=== PATIENT | female | born 1985 | race Caucasian/White ===

== ENCOUNTER 2019-10-30 15:03 | Emergency (ER) | payer OTHER ==
--- NOTE | 2019-10-30 16:11 | CR ---
Chest: Frontal view of the chest was obtained. Comparison: No prior chest imaging. Heart size and mediastinum are normal. Lungs show no acute parenchymal change. Bony structures are unremarkable. Impression: 1. Nothing acute is appreciated on frontal chest x-ray. Diagnostic code #1 This report was dictated in [place] Standard Time
[2019-10-30 16:40] LABS: BLOOD UREA NITROGEN,BUN 14 mg/dL (7.0-18.0); CARBON DIOXIDE,CO2 25.4 mmol/L (21.0-32.0); CHLORIDE,CL 104 mmol/L (98-107); GLUCOSE RANDOM 94 mg/dL (74-106); POTASSIUM,K 3.9 mmol/L (3.5-5.1); SODIUM,NA 138 mmol/L (136-145)
--- NOTE | 2019-10-30 17:10 | EDM.PDOC ---
ED HPI GENERAL MEDICAL PROBLEM - General Chief Complaint: Chest Pain Stated Complaint: CHEST PAIN Time Seen by Provider: 10/30/19 15:09 - History of Present Illness INITIAL COMMENTS - FREE TEXT/NARRATIVE: Epigastric pain radiating to midsternum x1 day non-positional history of hypertension,, denies any shortness of breath syncope or dizziness denies any fever chills denies any nausea vomiting diarrhea patient denies any other complaint. No history of cardiac complaints. Denies any cardiac history recently put on antihypertensive medication on trial of third antihypertensive medication because of side effects to previous medications. Currently in no distress at this time she is normotensive on arrival Onset: Today - Related Data Allergies Allergy/AdvReac Type Severity Reaction Status Date / Time No Known Allergies Allergy Verified 10/30/19 15:08 Home Meds: Home Meds Lansoprazole [Prevacid] 30 mg PO DAILY PRN #30 capsule. 10/30/19 [Rx] Omeprazole 20 mg PO BEDTIME 10/30/19 [History] buPROPion [Wellbutrin] 450 mg PO ASDIRECTED 10/30/19 [History] Past Medical History - Past Health History Medical/Surgical History: Denies Medical/Surgical History Cardiovascular History: Reports: None, Angina - Infectious Disease History Infectious Disease History: Reports: None Social & Family History - Family History Family Medical History: Noncontributory - Tobacco Use Smoking Status *Q: Never Smoker - Recreational Drug Use Recreational Drug Use: No ED ROS GENERAL - Review of Systems Review Of Systems: See Below Constitutional: Reports: No Symptoms HEENT: Reports: No Symptoms Respiratory: Reports: No Symptoms Cardiovascular: Reports: Chest Pain GI/Abdominal: Reports: Abdominal Pain, Decreased Appetite Musculoskeletal: Reports: No Symptoms Skin: Reports: No Symptoms Neurological: Reports: No Symptoms Psychiatric: Reports: No Symptoms Immunologic: Reports: No Symptoms ED EXAM, GENERAL - Physical Exam Exam: See Below Exam Limited By: No Limitations General Appearance: Alert, No Apparent Distress Ears: Normal External Exam, Normal Canal, Hearing Grossly Normal, Normal TMs Ear Exam: Bilateral Ear: Auricle Normal, Canal Normal, TM normal Nose: Normal Inspection, Normal Mucosa, No Blood Head: Atraumatic, Normocephalic Neck: Normal Inspection, Supple, Non-Tender, Full Range of Motion Respiratory/Chest: No Respiratory Distress, Lungs Clear, Normal Breath Sounds, No Accessory Muscle Use, Chest Non-Tender Cardiovascular: Normal Peripheral Pulses, Regular Rate, Rhythm, No Edema, No Gallop, No JVD, No Murmur, No Rub GI/Abdominal: Normal Bowel Sounds, Soft, Other (Epigastric tenderness with negative Sprgaue's) Back Exam: Normal Inspection Extremities: Normal Inspection, Normal Range of Motion, Non-Tender, Normal Capillary Refill, No Pedal Edema Lymphatic: No Adenopathy EKG INTERPRETATION Rhythm: NSR Rate (Beats/Min): 80 [place]: Normal P-Wave: Present QRS: Normal ST-T: Normal Course - Vital Signs Last Recorded V/S: Last Vital Signs Temp 96.3 F 10/30/19 15:13 Pulse 118 H 10/30/19 15:13 Resp 16 10/30/19 15:13 BP 138/89 10/30/19 15:13 Pulse Ox 96 10/30/19 15:13 - Orders/Labs/Meds Orders: Active Orders 24 hr Category Date Time Status EKG Documentation Completion [RC] STAT Care 10/30/19 15:23 Active Labs: Laboratory Tests 10/30/19 10/30/19 Range/Units 15:40 15:40 WBC 7.28 (4.0-11.0) K/uL RBC 5.25 (4.30-5.90) M/uL Hgb 13.5 (12.0-16.0) g/dL Hct 42.5 (36.0-46.0) % MCV 81.0 (80.0-98.0) fL MCH 25.7 L (27.0-32.0) pg MCHC 31.8 (31.0-37.0) g/dL RDW Std Deviation 48.1 (28.0-62.0) fl RDW Coeff of Karen 16 H (11.0-15.0) % Plt Count 347 (150-400) K/uL MPV 9.10 (7.40-12.00) fL Neut % (Auto) 56.7 (48.0-80.0) % Lymph % (Auto) 34.6 (16.0-40.0) % Donley % (Auto) 6.0 (0.0-15.0) % Eos % (Auto) 1.9 (0.0-7.0) % Baso % (Auto) 0.8 (0.0-1.5) % Neut # (Auto) 4.1 (1.4-5.7) K/uL Lymph # (Auto) 2.5 H (0.6-2.4) K/uL Donley # (Auto) 0.4 (0.0-0.8) K/uL Eos # (Auto) 0.1 (0.0-0.7) K/uL Baso # (Auto) 0.1 (0.0-0.1) K/uL Nucleated RBC % 0.0 /100WBC Nucleated RBCs # 0 K/uL Sodium 138 (136-145) mmol/L Potassium 3.9 (3.5-5.1) mmol/L Chloride 104 (98-107) mmol/L Carbon Dioxide 25.4 (21.0-32.0) mmol/L BUN 14 (7.0-18.0) mg/dL Creatinine 0.9 (0.6-1.0) mg/dL Est Cr Clr Drug Dosing 107.02 mL/min Estimated GFR (MDRD) > 60.0 ml/min Glucose 94 (74-106) mg/dL Calcium 9.4 (8.5-10.1) mg/dL Total Bilirubin 0.2 (0.2-1.0) mg/dL AST 41 H (15-37) IU/L ALT 64 H (14-63) IU/L Alkaline Phosphatase 70 (46-116) U/L Troponin I < 0.050 (0.000-0.056) ng/mL Total Protein 8.1 (6.4-8.2) g/dL Albumin 3.6 (3.4-5.0) g/dL Globulin 4.5 H (2.6-4.0) g/dL Albumin/Globulin Ratio 0.8 L (0.9-1.6) Departure - Departure Time of Disposition: 17:12 Disposition: Home, Self-Care 01 Condition: Good Clinical Impression: Atypical chest pain Instructions: Nonspecific Chest Pain, [id number] Sepsis Event Note - Evaluation Sepsis Screening Result: No Definite Risk - Focused Exam Vital Signs: Vital Signs Temp Pulse Resp BP Pulse Ox 10/30/19 15:13 96.3 F 118 H 16 138/89 96 Date Exam was Performed: 10/30/19 Time Exam was Performed: 17:05 - My Orders Last 24 Hours: My Active Orders 10/30/19 15:23 EKG Documentation Completion [RC] STAT - Assessment/Plan Last 24 Hours: My Active Orders 10/30/19 15:23 EKG Documentation Completion [RC] STAT
== END 2019-10-30 17:25 | disposition home or self-care (01) ==
LOC: MW.ED 15:03
DX: R07.89 Other chest pain (principal); I10 Essential (primary) hypertension; Z79.899 Other long term (current) drug therapy
CPT/HCPCS: 36415; 71045; 71045-26; 80053; 84484; 85025; 93005; 99284; 99285-25

== ENCOUNTER 2021-01-23 17:53 | Emergency (ER) | payer OTHER ==
--- NOTE | 2021-01-23 18:16 | EDM.PDOC ---
ED HPI GENERAL MEDICAL PROBLEM - General Chief Complaint: Upper Extremity Injury/Pain Stated Complaint: FALL, RT WRIST INJURY Time Seen by Provider: 01/23/21 17:54 Source of Information: Reports: Patient History Limitations: Reports: No Limitations - History of Present Illness INITIAL COMMENTS - FREE TEXT/NARRATIVE: HISTORY AND PHYSICAL: History of present illness: The patient is a 35-year-old female presents to the emergency room with complaints of right thenar area after tripping on the sidewalk, falling to her knees and catching herself with her right hand. She denies numbness or tingling. She denies any other injury and did not hit her head. She denies any previous injury to the right hand. She has not teated the area with ice. She reports that she took Tylenol a few hours before the fall. Patient denies any fever, chills, headache, change in vision, syncope or near syncope. Denies any chest pain, back pain, shortness of breath or cough. Denies any abdominal pain, nausea, vomiting, diarrhea, constipation or dysuria. Has not noted any blood in urine or stool. Patient has been eating and drinking appropriately. Review of systems: As per history of present illness and below otherwise all systems reviewed and negative. Past medical history: As per history of present illness and as reviewed below otherwise noncontributory. Surgical history: As per history of present illness and as reviewed below otherwise noncontributory. Social history: See social history for further information Family history: As per history of present illness and as reviewed below otherwise noncontributory. Physical exam: General: Well developed and well nourished. Alert and orientated x 3. Nontoxic in appearance and in no acute distress. Vital signs are stable and have been reviewed by me. Nursing notes were reviewed. HEENT: Atraumatic, normocephalic, pupils equal and reactive bilaterally, negative for conjunctival pallor or scleral icterus, mucous membranes moist, TMs normal bilaterally, throat clear, neck supple, nontender, trachea midline. No drooling or trismus noted. No meningeal signs. No hot potato voice noted. Lungs: Clear to auscultation bilaterally. No wheezes, rales, or rhonchi. Chest nontender. Normal work of breathing, no accessory muscles used. Heart: S1S2, regular rate and rhythm without overt murmur, gallops, or rubs. No JVD. No peripheral edema Abdomen: Soft, nondistended, nontender. Normoactive bowel sounds. Negative for masses or costovertebral tenderness. Skin: Superficial abrasion to thenar area of right hand. Fingers are cool to touch. Sensation is normal. Superficial abrasions noted to bilateral knees. No active bleeding noted. No lesions or rashes noted. Hematologic: No petechiae or purpra. Mucosa appropriate color and normal nail bed color and refill. Extremities: Moves all extremities per self without difficulty or deficits, negative for cords or calf pain. Neurovascular unremarkable. Neuro: Awake, alert, oriented. Cranial nerves II through XII unremarkable. Cerebellum unremarkable. Motor and sensory unremarkable throughout. Exam nonfocal. Psychiatric: Mood and affect are appropriate. Normal thought process. Answering questions appropriately. Notes: *This patient was seen and evaluated during the 2019 SARS-CoV-2 novel coronavirus pandemic period. Community viral transmission is ongoing at time of this encounter and the emergency department is operating under pandemic response procedures. After discussion and exam the patient is agreeable to imaging. She was offered pain relief and refused. Right hand x-ray impression:No acute fracture. Patient to be discharged home. I have talked with the patient about today's findings, in addition to providing specific details for plan of care. Reassessment at the time of disposition demonstrates that the patient is in no acute distress. The patient is stable for discharge, counseling was provided and we discussed in great detail signs and symptoms that would prompt them to return to the Emergency Department. Medication, follow up and supportive care measures were reviewed and discussed. Voices understanding and is agreeable to plan of care. Denies any further questions or concerns at this time. Diagnostics: right hand x-ray Impression: Contusion right hand Plan: 1. You were evaluated today on an emergent basis. Your complaint of right hand pain and swelling after your fall was evaluated with an x-ray. The x-ray had no fracture. You can use ice for tonight and then either heat or cold for discomfort. You can take Tylenol for pain. A normal dose of Tylenol is 325mg per tab and you can take 650mg every 6 hours. If you have extra strength which is 500mg you can take 1 tab every 6 hours. Do not exceed 3000mg per day. 2. You can alternate Tylenol and ibuprofen as needed for pain and fever management. 3. We encourage you to follow up with your primary care provider and/or recommended specialist in the next few days for re-evaluation and further care/management. 4. If your symptoms should worsen, new symptoms develop or any of the signs and symptoms we discussed should arise please return to the emergency room or call 911 (if needed). Definitive disposition and diagnosis as appropriate pending reevaluation and review of above. Right Hand Pain Score (Numeric/FACES): 4 - Related Data Allergies Allergy/AdvReac Type Severity Reaction Status Date / Time copper Allergy Airway Verified 01/23/21 18:02 Tightness Home Meds: Home Meds Omeprazole 20 mg PO BEDTIME 10/30/19 [History] buPROPion [Wellbutrin] 450 mg PO ASDIRECTED 10/30/19 [History] Past Medical History - Past Health History Medical/Surgical History: Denies Medical/Surgical History Cardiovascular History: Reports: None - Infectious Disease History Infectious Disease History: Reports: None - Past Surgical History GI Surgical History: Reports: Bariatric Procedure Social & Family History - Family History Family Medical History: No Pertinent Family History - Tobacco Use Tobacco Use Status *Q: Never Tobacco User Second Hand Smoke Exposure: No - Caffeine Use Caffeine Use: Reports: None - Recreational Drug Use Recreational Drug Use: No Review of Systems - Review of Systems Review Of Systems: Comprehensive ROS is negative, except as noted in HPI. ED EXAM, GENERAL - Physical Exam Exam: See Below (See dictation) Course - Vital Signs Last Recorded V/S: Last Vital Signs Temp 97 F 01/23/21 18:03 Pulse 70 01/23/21 18:03 Resp 18 01/23/21 18:03 BP 118/75 01/23/21 18:03 Pulse Ox 99 01/23/21 18:03 Departure - Departure Time of Disposition: 19:04 Disposition: Home, Self-Care 01 Condition: Good Clinical Impression: Contusion of hand, right Qualifiers: Encounter type: initial encounter Qualified Code(s): S60.221A - Contusion of right hand, initial encounter - Discharge Information *PRESCRIPTION DRUG MONITORING PROGRAM REVIEWED*: Not Applicable *COPY OF PRESCRIPTION DRUG MONITORING REPORT IN PATIENT [place]EN[place]: Not Applicable Instructions: Hand Contusion Referrals: Aidan Friend MD [Primary Care Provider] - Forms: ED Department Discharge Additional Instructions: The following information is given to patients seen in the emergency department who are being discharged to home. This information is to outline your options for follow-up care. We provide all patients seen in our emergency department with a follow-up referral. The need for follow-up, as well as the timing and circumstances, are variable depending upon the specifics of your emergency department visit. If you don't have a primary care physician on staff, we will provide you with a referral. We always advise you to contact your personal physician following an emergency department visit to inform them of the circumstance of the visit and for follow-up with them and/or the need for any referrals to a consulting specialist. The emergency department will also refer you to a specialist when appropriate. This referral assures that you have the opportunity for follow-up care with a specialist. All of these measure are taken in an effort to provide you with optimal care, which includes your follow-up. Under all circumstances we always encourage you to contact your private physician who remains a resource for coordinating your care. When calling for follow-up care, please make the office aware that this follow-up is from your recent emergency room visit. If for any reason you are refused follow-up, please contact the [facility] Emergency Department at and asked to speak to the emergency department charge nurse. [facility] [address] [place] [address] [id number] [address] [address] Plan: 1. You were evaluated today on an emergent basis. Your complaint of right hand pain and swelling after your fall was evaluated with an x-ray. The x-ray had no fracture. You can use ice for tonight and then either heat or cold for discomfort. You can take Tylenol for pain. A normal dose of Tylenol is 325mg per tab and you can take 650mg every 6 hours. If you have extra strength which is 500mg you can take 1 tab every 6 hours. Do not exceed 3000mg per day. 2. You can alternate Tylenol and ibuprofen as needed for pain and fever management. 3. We encourage you to follow up with your primary care provider and/or recommended specialist in the next few days for re-evaluation and further care/management. 4. If your symptoms should worsen, new symptoms develop or any of the signs and symptoms we discussed should arise please return to the emergency room or call 911 (if needed). Sepsis Event Note (ED) - Evaluation Sepsis Screening Result: No Definite Risk - Focused Exam Vital Signs: Vital Signs Temp Pulse Resp BP Pulse Ox 01/23/21 18:03 97 F 70 18 118/75 99
--- NOTE | 2021-01-23 18:57 | CR ---
Indication: Fall on right hand. Pain. Swelling. Technique: Three views of the right hand. Comparison: None Findings: No acute fracture or subluxation is identified. The joint spaces are well maintained. Impression: No acute fracture. Dictated by Renetta Ventura MD @ Jan 23 2021 6:54PM Signed by Dr. Renetta Ventura @ Jan 23 2021 6:55PM
== END 2021-01-23 19:19 | disposition home or self-care (01) ==
LOC: MW.ED 17:53
DX: S60.221A Contusion of right hand, initial encounter (principal); Z91.048 Other nonmedicinal substance allergy status; Z79.899 Other long term (current) drug therapy; W01.0XXA Fall on same level from slipping, tripping and stumbling without subsequent striking against object, initial encounter
CPT/HCPCS: 73130-26-RT; 73130-RT; 99282; 99283-25